=== PATIENT | female | born 1950 | race Caucasian/White ===

== ENCOUNTER 2020-03-10 08:52 | Outpatient (CLI) | payer MEDICARE, SELFPAY ==
--- NOTE | ~2020-03-10 | CT_ITS ---
EXAMINATION:CT chest wo con DATE: 03/10/2020 09:10 INDICATION: Other nonspecific abnormal finding of the lung field. TECHNIQUE: Computed tomography (CT) of the chest was performed without intravenous contrast. Automate d exposure control and iterative reconstruction technique were employed. The dose-length product (DLP ) was 91.67 mGy-cm. COMPARISON: PET/CT 06/28/2019, chest CT 06/25/2019, 03/22/2019 FINDINGS: There is moderate emphysema. Calcified right lung nodules and calcified right hilar and med iastinal lymph nodes are consistent with old granulomatous disease. There is mucous plugging in right lower lobe. There is a 14 mm nodule in left upper lobe, increased from 9 mm on 06/25/2019. There is a 9 mm nodule in right upper lobe, worsened from 3 mm on 06/25/19. There is a 10 mm nodule in right upp er lobe, stable from 06/25/2019. There are a few other nodules in right lung measuring up to 8 mm, sta ble from 06/25/2019. No pleural effusion. The heart size is normal. There are coronary artery calcific ations. No pericardial effusion. There is moderate thoracic spondylosis. IMPRESSION: 1. Worsened pulmonary nodules, at least the largest two of which are suspicious for malignancy. Consi milton CT-guided biopsy of the 14 mm left upper lobe pulmonary nodule. Reviewed, dictated and finalized at location A. IMPRESSION: 1. Worsened pulmonary nodules, at least the largest two of which are suspicious for malignancy. Consider CT-guided biopsy of the 14 mm left upper lobe pulmona ry nodule.
== END 2020-03-10 08:53 | disposition home or self-care (01) ==
PROVIDERS: PCP Family Medicine; Visit Provider Family Medicine
DX: R91.8 Other nonspecific abnormal finding of lung field (principal)
CPT/HCPCS: 71250

== ENCOUNTER 2020-03-15 01:17 | Outpatient (CLI) | payer MEDICARE, SELFPAY ==
[2020-03-15 17:59] LABS: SARS-CoV-2 RNA PCR Negative
== END 2020-03-15 01:18 | disposition home or self-care (01) ==
LOC: ANHCOVIDDT 01:17
PROVIDERS: PCP Family Medicine; Visit Provider Family Medicine
DX: Z01.812 Encounter for preprocedural laboratory examination (principal); Z20.828 Contact with and (suspected) exposure to other viral communicable diseases
CPT/HCPCS: 87635; C9803; U0003

== ENCOUNTER 2020-03-18 09:34 | Outpatient (CLI) | payer MEDICARE, SELFPAY ==
[2020-03-17 09:31] VITALS: BMI 26.6
[2020-03-18] VITALS (9 sets, daily range): BP systolic 111–157; BP diastolic 50–72; PULSE 70–80; RESP 16–20; O2SAT 90–98
--- NOTE | ~2020-03-18 | XR_ITS ---
XR chest 1V portable DATE: 03/18/2020 13:18 INDICATION: One hour post image guided lung biopsy TECHNIQUE: Portable AP chest on 03/18/2020 at 1309 hours COMPARISON: 03/18/2020 AP chest 03/10/2020 CT thorax FINDINGS: Normal heart size. Aortic calcification. No hilar or mediastinal enlargement. There is m oderate hyperinflation of the lungs. No pneumothorax is detected following percutaneous lung biopsy. Ill-defined opacity of left mid to upper lung, corresponding to left upper lung mass. Additional lung mass is evident on the 03/10/2020 CT examination are not readily evident radiographica lly. Diffuse osteopenia. IMPRESSION: No evidence of postbiopsy iatrogenic pneumothorax Reviewed, dictated and finalized at location A.
--- NOTE | ~2020-03-18 | XR_ITS ---
EXAMINATION: XR chest 1V DATE: 03/18/2020 12:19 INDICATION: Status post percutaneous left lung biopsy TECHNIQUE: frontal view of the chest was obtained. COMPARISON: Chest radiograph dated 05/10/2017 FINDINGS: Subtle opacity in the left lung zone corresponding to the biopsied nodule and likely minimal surround ing pulmonary hemorrhage. No other airspace opacities, pulmonary edema, pleural effusion or pneumotho rax. The cardiomediastinal silhouette is normal. IMPRESSION: 1. No pneumothorax or pleural effusion post percutaneous biopsy of a left upper lobe pulmonary nodule . Reviewed, dictated and finalized at location A. IMPRESSION: 1. No pneumothorax or pleural effusion post percutaneous biopsy of a left upper lobe pulmonary nodule.
--- NOTE | ~2020-03-18 | XR_ITS ---
EXAMINATION: XR chest 1V portable DATE: 03/18/2020 15:09 INDICATION: Status post percutaneous left lung biopsy. TECHNIQUE: frontal view of the chest was obtained. COMPARISON: Chest radiograph dated 03/18/2020 at 1:09 PM FINDINGS: Again seen is a subtle nodular opacity in the left midlung zone corresponding to the biopsied nodule. The previously seen minimal surrounding hemorrhage appears to have resolved. No new airspace opaciti es, pleural effusion, pulmonary edema or pneumothorax. The cardiomediastinal silhouette is normal. IMPRESSION: 1. No pneumothorax or pleural effusion post procedure scans biopsy of a left upper lobe nodule which is concerning for malignancy. Reviewed, dictated and finalized at location A. IMPRESSION: 1. No pneumothorax or pleural effusion post procedure scans biopsy of a left up per lobe nodule which is concerning for malignancy.
--- NOTE | ~2020-03-18 | CT_ITS ---
EXAMINATION: CT biopsy lung DATE: 03/18/2020 12:33 INDICATION: Enlarging 14 mm left upper lobe nodule. TECHNIQUE: The procedure including the risks and benefits was discussed with the patient. Risks discu ssed included infection, approximately 1/20 risk of symptomatic hemorrhage beyond mild hemoptysis, ap proximately 1/3 risk of pneumothorax, and approximately 1/10 risk of pneumothorax severe enough to wa rrant chest tube placement. The patient understood the risks and agreed to proceed. The patient was p laced in the right lateral decubitus position. The skin overlying the left infra axillary chest wall was prepped and draped in sterile fashion. Anesthetic was administered with 1% lidocaine subcutaneo usly. A 19 gauge outer needle was advanced under CT guidance to the lesion of interest. A 20 gauge c ore biopsy needle was then used to obtain 2 core biopsy specimens, each demonstrating clearly visible greater than 1 cm long cores of solid soft tissue. The needle was removed and the entry site was sandra aned and dressed. There were no immediate complications. The dose-length product was 167.21 mGy-cm. FINDINGS: CT images demonstrate the outer needle tip adjacent to 1.4 cm left upper lobe nodule of con cern. IMPRESSION: 1. Successful CT-guided biopsy of a 1.4 cm left upper lobe nodule with spiculated and lobular margins which is concerning for primary bronchogenic carcinoma. Reviewed, dictated and finalized at location A. IMPRESSION: 1. Successful CT-guided biopsy of a 1.4 cm left upper lobe nodule with spiculat ed and lobular margins which is concerning for primary bronchogenic carcinoma.
[2020-03-18 10:12] LABS: Basophils Absolute Auto 0.1 K/mm3 (0.0-0.1); Basophils Percent Auto 0.7 % (0.2-1.2); Eosinophils Percent Auto 0.5 % (0-4.4); Hemoglobin 16.3 g/dL (12.0-15.0); Immature Granulocyte Absolute 0.04 K/mm3 (0.00-0.031); Immature Granulocyte Percent A 0.5 % (0-0.5); Lymphocytes Absolute Auto 2.23 K/mm3 (0.9-3.2); Lymphocytes Percent Auto 26.7 % (18.3-44.2); Mean Corpuscular HGB Conc 33.3 g/dl (32-36); Mean Corpuscular Hemoglobin 32.1 pg (26-34); Mean Corpuscular Volume 96.6 fl (80-100); Mean Platelet Volume 9.9 fl (7.4-10.4); Monocytes Absolute Auto 0.6 K/mm3 (0.1-0.6); Monocytes Percent Auto 6.8 % (2.6-8.5); Neutrophils Absolute Auto 5.4 K/mm3 (1.3-6.7); Neutrophils Percent Auto 64.8 % (45.5-73.1); Platelet Count Result 244 k/mm3 (150-375); Red Blood Count 5.07 M/mm3 (4.2-5.4); Red Cell Distribution Width 13.5 % (11.5-14.5); White Blood Count 8.3 K/mm3 (4.5-10.0)
[2020-03-18 10:33] LABS: Prothrombin Time 12.6 Seconds (11.1-14.7)
--- NOTE | 2020-03-18 14:05 | SUR.PHASEII ---
1405 - Dr. Tai called and aware of pt's O2 status at 86% - 90%. When o2 at 2l/nc applied, sats at 94%. no orders received at this time.
--- NOTE | 2020-03-18 15:27 | SUR.PHASEII ---
1525 - iv alise'nimco. catheter intact
--- NOTE | 2020-03-18 15:33 | SUR.PHASEII ---
1533 - dr. willis in room talking with pt.
== END 2020-03-18 09:35 | disposition home or self-care (01) ==
PROVIDERS: Radiology Diagnostic Radiology; PCP Family Medicine; Visit Provider Family Medicine
DX: C34.12 Malignant neoplasm of upper lobe, left bronchus or lung (principal); F17.219 Nicotine dependence, cigarettes, with unspecified nicotine-induced disorders
CPT/HCPCS: 32405; 36415; 71045; 77012; 85025; 85610; 88305

== ENCOUNTER 2020-03-27 08:44 | Outpatient (CLI) | payer MEDICARE, SELFPAY ==
--- NOTE | ~2020-03-27 | MM_ITS ---
EXAMINATION: MM screening [facility] BI w nae HISTORY: Screening TECHNIQUE: Craniocaudal and mediolateral oblique 3-D tomosynthesis images were obtained and synthetic 2-D images were generated. CAD analysis was submitted and interpreted. COMPARISON: Comparison to multiple prior studies sequentially, with oldest reviewed study dated 12/26. BREAST PARENCHYMAL COMPOSITION: There are scattered areas of fibroglandular density. FINDINGS: There is no evidence of suspicious mass, calcification, or architectural distortion to sugg est malignancy in either breast. There has been no suspicious interval change. IMPRESSION: 1. No mammographic evidence of malignancy. 2. Recommend routine screening mammography in one year. BI-RADS Category 1: Negative Reviewed, dictated and finalized at location A.
== END 2020-03-27 08:45 | disposition home or self-care (01) ==
LOC: ANHIMG 08:47
PROVIDERS: PCP Family Medicine; Visit Provider Family Medicine
DX: Z12.31 Encounter for screening mammogram for malignant neoplasm of breast (principal)
CPT/HCPCS: 77063; 77067

== ENCOUNTER 2021-12-16 09:27 | Outpatient (CLI) | payer MEDICARE, SELFPAY ==
--- NOTE | ~2021-12-16 | DEXA_ITS ---
Bone Density Report Name: EVAN BECKWITH Age: 71 Sex: Female Ethnicity: White Date of : 1950 Indication: postmenopausal; screening for osteoporosis; height loss; cancer; Referring Provider: GERRY HERNANDEZ Study: Bone densitometry was performed. Exam Date: December 16, 2021 Accession number: [id number] Bone Density: Region BMD T-score Z-score Classification AP Spine(L1-L4) 0.968 -0.7 1.4 Normal Femoral Neck (Left) 0.894 0.4 2.2 Normal Total Hip (Left) 0.944 0.0 1.5 Normal Femoral Neck (Right) 0.867 0.2 2.0 Normal Total Hip (Right) 0.963 0.2 1.7 Normal Total Hip Mean 0.953 0.1 1.6 Normal World Health Organization criteria for BMD impression classify patients as: Normal (T-score at or above -1.0), Osteopenia (T-score between -1.0 and -2.5), or Osteoporosis (T-score at or below -2.5). 10-year Fracture Risk: FRAX not reported because: All T-scores for Spine Total, Hip Total, Femoral Neck at or above -1.0 Previous Exams: Region Exam Age BMD T-score BMD Change BMD Change Date g/cm2 vs Baseline vs Previous AP Spine (L1-L4) 12/16/2021 71 0.968 -0.7 -0.031 (-3.1%) -0.031 (-3.1%) 04/05/2017 66 1.000 -0.4 Total Hip(Left) 12/16/2021 71 0.944 0.0 -0.043 (-4.4%) -0.043 (-4.4%) 04/05/2017 66 0.987 0.4 Total Hip(Right) 12/16/2021 71 0.963 0.2 -0.061 (-6.0%) -0.061 (-6.0%) 04/05/2017 66 1.024 0.7 *Denotes significance at 95% confidence level, LSC for AP Spine = 0.022 g/cm2, LSC for Total Hip = 0.027 g/cm2 Clinical Information Provided by Patient: Smokes Has used the following medications: Vitamin D Has the following medical conditions: Cancer Patient maximum height was 67 Menopause Age: 53 No regular weight bearing exercise Drinks caffeinated beverages Onset of menses at age 15 Number of children 2 Impression: The patient has normal bone mass. The patient has risk factors, including: smoking. The BMD for the AP Spine (L1-L4) decreased, changing by -3.1% since the last DXA exam. The BMD for the Total Hip(Left) decreased, changing by -4.4% since the last DXA exam. The BMD for the Total Hip(Right) decreased, changing by -6.0% since the last DXA exam. Discussion: BONE DENSITY IS ABOVE THE MINIMUM DESIRABLE LEVEL AT ALL SKELETAL SITES TESTED. This patient?s bone mineral density is above the minimum desirable level (T-score -1.0 or better) at all sites measured. The patient should follow a healthful lifestyle
--- NOTE | ~2021-12-16 | MM_ITS ---
EXAMINATION: MM screening [facility] BI w nae HISTORY: Screening TECHNIQUE: Craniocaudal and mediolateral oblique 3-D tomosynthesis images were obtained and synthetic 2-D images were generated. CAD analysis was submitted and interpreted. COMPARISON: Comparison to multiple prior studies sequentially, with oldest reviewed study dated 10/2016. BREAST PARENCHYMAL COMPOSITION: There are scattered areas of fibroglandular density. FINDINGS: There is no evidence of suspicious mass, calcification, or architectural distortion to sugg est malignancy in either breast. There has been no suspicious interval change. IMPRESSION: 1. No mammographic evidence of malignancy. 2. Recommend routine screening mammography in one year. BI-RADS Category 1: Negative Reviewed, dictated and finalized at location A.
== END 2021-12-16 09:28 | disposition home or self-care (01) ==
LOC: ANHIMG 09:30
PROVIDERS: PCP Family Medicine; Visit Provider Physician Assistant
DX: Z12.31 Encounter for screening mammogram for malignant neoplasm of breast (principal); Z78.0 Asymptomatic menopausal state
CPT/HCPCS: 77063; 77067; 77080

== ENCOUNTER 2023-09-28 13:57 | Outpatient (CLI) | payer MEDICARE, SELFPAY ==
--- NOTE | ~2023-09-28 | MM_ITS ---
EXAMINATION: MM screening [facility] BI w nae HISTORY: Screening TECHNIQUE: Craniocaudal and mediolateral oblique 3-D tomosynthesis images were obtained and synthetic 2-D images were generated. CAD analysis was submitted and interpreted. COMPARISON: 12/16/2021 BREAST PARENCHYMAL COMPOSITION: Not dense: There are scattered areas of fibroglandular density. FINDINGS: There is no evidence of suspicious mass, calcification, or architectural distortion to sugg est malignancy in either breast. There has been no suspicious interval change. IMPRESSION: 1. No mammographic evidence of malignancy. 2. Recommend routine screening mammography in one year. BI-RADS Category 1: Negative Reviewed, dictated and finalized at location B.
== END 2023-09-28 13:58 | disposition home or self-care (01) ==
LOC: ANHIMG 13:58
PROVIDERS: PCP Family Medicine; Visit Provider Nurse Practitioner
DX: Z12.31 Encounter for screening mammogram for malignant neoplasm of breast (principal)
CPT/HCPCS: 77063; 77067